=== PATIENT | female | born 1985 | race Caucasian/White ===

== ENCOUNTER 2021-10-26 22:09 | Emergency (ER) | payer SELFPAY | END 2021-10-26 22:39 | disposition home or self-care (01) | LOC: CSHERS 22:09 | DX: K04.7 Periapical abscess without sinus (principal); F17.210 Nicotine dependence, cigarettes, uncomplicated | CPT/HCPCS: 99282 ==

== ENCOUNTER 2023-05-18 06:30 | Emergency (ER) | payer SELFPAY ==
[2023-05-18 09:17] LABS: SARS-CoV-2 NAA Rapid Test DETECTED (NotDetected)
== END 2023-05-18 09:39 | disposition home or self-care (01) ==
LOC: CSHERS 06:30
DX: U07.1 COVID-19 (principal); H66.91 Otitis media, unspecified, right ear; F17.210 Nicotine dependence, cigarettes, uncomplicated
CPT/HCPCS: 99283

== ENCOUNTER 2023-07-12 17:53 | Emergency (ER) | payer SELFPAY | END 2023-07-12 19:01 | disposition home or self-care (01) | LOC: CSHERS 17:53 | DX: K02.9 Dental caries, unspecified (principal); F17.210 Nicotine dependence, cigarettes, uncomplicated | CPT/HCPCS: 99282 ==